=== PATIENT | female | born 1985 | race Hispanic/Latino ===

== ENCOUNTER 2017-12-13 14:05 | Emergency (ER) | payer OTHER ==
[2017-12-13 14:27] VITALS: BMI 28.8
[2017-12-13 14:30] VITALS: O2SAT 100
--- NOTE | 2017-12-13 14:51 | C.PDOC ---
History Of Present Illness 32 year old female presents to the ER with a complaint of frequency and pelvic pain when sitting and that worsens with walking; associated with some discomfort with urination. Denies vaginal bleeding or vaginal discharge. Time Seen by Provider: 12/13/17 14:44 Chief Complaint (Nursing): Female Genitourinary History Per: Patient History/Exam Limitations: no limitations Onset/Duration Of Symptoms: Days Current Symptoms Are (Timing): Still Present Associated Symptoms: Urinary Symptoms (Frequency), Other ((+) Pelvic pain. (-) Vaginal bleeding or discharge.). denies: Fever Alleviating Factors: None Recent travel outside of the [place]: No Abnormal Vaginal Bleeding: No Past Medical History Reviewed: Historical Data, Nursing Documentation, Vital Signs Vital Signs: Last Vital Signs Temp 97.8 F 12/13/17 14:28 Pulse 80 12/13/17 14:28 Resp 16 12/13/17 14:28 BP 112/76 12/13/17 14:28 Pulse Ox 100 12/13/17 17:52 - [facility] Procedures ARTIF RUPT MEMBRANES NEC (12/06/13) MONITORING NOS (12/06/13) INJECT/INFUSE NEC (03/25/13) MANUAL ASSIST DELIV NEC (12/06/13) Family History: States: Unknown Family Hx - Social History Hx Alcohol Use: No Hx Substance Use: No - Immunization History Hx Tetanus Toxoid Vaccination: No Hx Influenza Vaccination: No Hx Pneumococcal Vaccination: No Review Of Systems Constitutional: Negative for: Fever, Chills Gastrointestinal: Negative for: Abdominal Pain Genitourinary: Positive for: Frequency, Pelvic Pain. Negative for: Vaginal Discharge, Vaginal Bleeding Physical Exam - Physical Exam Appears: Non-toxic Skin: Normal Color, Warm, Dry Head: Atraumatic, Normacephalic Eye(s): bilateral: Normal Inspection Oral Mucosa: Moist Chest: Symmetrical, No Tenderness Cardiovascular: Rhythm Regular Respiratory: Normal Breath Sounds, No Rales, No Rhonchi, No Wheezing Gastrointestinal/Abdominal: Soft, Tenderness (Left suprapubic), No Guarding, No Rebound Pelvic: Normal External Exam, Normal Speculum Exam, No Vaginal Bleeding, No Vaginal Discharge, No Cervical Motion Tenderness, Adnexal Tenderness (left) Neurological/Psych: Oriented x3, Normal Speech, Normal Cognition ED Course And Treatment - Laboratory Results Result Diagrams: 12/13/17 15:32 12/13/17 15:32 O2 Sat by Pulse Oximetry: 100 (Room air) Pulse Ox Interpretation: Normal - CT Scan/US Pelvis US Other Rad Studies (CT/US): Read By Radiologist, Radiology Report Reviewed CT/US Interpretation: HISTORY: let pelvic pain. COMPARISON: None available. TECHNIQUE: Transabdominal and transvaginal. FINDINGS: UTERUS: Measures 7.9 x 4.3 x 6.0 cm. Normal in size and appearance. No fibroid or other mass lesion seen. ENDOMETRIUM: Measures 8 mm in diameter. Unremarkable. CERVIX: No cervical abnormality identified. RIGHT OVARY: Measures 2.4 x 2.9 x 2.6 cm. No solid mass. Normal flow. LEFT OVARY: Measures 3.5 x 2.3 x 2.7 cm. No solid mass. Normal flow. Minimally complicated cyst with internal septation, 2.0 x 1.3 x 1.8 cm. Likely physiologic. . FREE FLUID: No significant free fluid noted. OTHER FINDINGS: None. IMPRESSION: 2 cm septated left ovarian cyst. Otherwise unremarkable. Progress Note: Blood work, urinalysis, and pelvis US ordered. IV fluids administered. Disposition - Disposition Referrals: [facility] [Outside] Disposition: HOME/ ROUTINE Disposition Time: 18:13 Condition: STABLE Additional Instructions: Follow up with OBGYN within 1-2 days. Return to ED if feel worse. Prescriptions: Naproxen [Naprosyn] 1 tab PO BID PRN #25 tab PRN Reason: Pain Instructions: Ovarian Cyst (DC) Forms: Ratify (Thai), Ratify (Israeli) Print Language: DANISH - Clinical Impression Clinical Impression: Ovarian cyst - PA / OUT PATIENT THERAPIST / Resident Statement MD/DO has reviewed & agrees with the documentation as recorded. - Scribe Statement The provider has reviewed the documentation as recorded by the Scribe Luis Stephens All medical record entries made by the Antelmoibe were at my direction and personally dictated by me. I have reviewed the chart and agree that the record accurately reflects my personal performance of the history, physical exam, medical decision making, and the department course for this patient. I have also personally directed, reviewed, and agree with the discharge instructions and disposition.
[2017-12-13 14:52] LABS: HCG,QUALITATIVE URINE NEGATIVE (NEGATIVE)
[2017-12-13 15:04] LABS: SQUAMOUS EPITHIAL 2 /hpf (0-5); URINE BILIRUBIN NEGATIVE (NEGATIVE); URINE BLOOD NEGATIVE (NEGATIVE); URINE CLARITY Clear (Clear); URINE COLOR Yellow (YELLOW); URINE GLUCOSE (UA) NORMAL (Normal); URINE LEUKOCYTE ESTERASE NEG Leu/uL (Negative); URINE PROTEIN NEGATIVE (NEGATIVE); URINE UROBILINOGEN NORMAL mg/dL (0.2-1.0)
[2017-12-13] MEDS ORDERED: Sodium Chloride 0.9% 1,000 ML IV STA (15:15)
[2017-12-13 15:37] LABS: BASO # 0.1 K/uL (0.0-0.2); EOS # 0.1 K/uL (0.0-0.7); EOS % 1.9 % (0.0-4.0); HEMOGLOBIN 14.1 g/dL (11.0-16.0); LYMPH # 2.9 K/uL (1.0-4.3); LYMPH % 39.8 % (20.0-40.0); MEAN CELL VOLUME 83.5 fL (81.0-99.0); MEAN CORPUSCULAR HEMOGLOBIN 29.1 pg (27.0-31.0); MEAN CORPUSCULAR HGB CONC 34.9 g/dL (33.0-37.0); MEAN PLATELET VOLUME 9.4 fL (7.2-11.7); MONO # 0.3 K/uL (0.0-0.8); MONO % 4.8 % (0.0-10.0); NEUT # 3.8 K/uL (1.8-7.0); NEUT % 52.5 % (50.0-75.0); NRBC % 0.1 % (0.0-2.0); RBC 4.84 Mil/uL (3.80-5.20); RED CELL DISTRIBUTION WIDTH 12.7 % (11.5-14.5); WHITE BLOOD COUNT 7.3 K/uL (4.8-10.8)
[2017-12-13 16:09] LABS: ALB/GLOB RATIO 1.1 (1.0-2.1); ALBUMIN 4.2 g/dL (3.5-5.0); ALT/SGPT 25 U/L (9-52); AST/SGOT 32 U/L (14-36); BLOOD UREA NITROGEN 15 mg/dL (7-17); CALCIUM 9.2 mg/dl (8.6-10.4); GFR AFRICAN-AMERICAN > 60; GFR NON-AFRICAN AMERICAN > 60; LIPASE 226 U/L (23-300)
--- NOTE | 2017-12-13 17:28 | US ---
HISTORY: let pelvic pain COMPARISON: None available. TECHNIQUE: Transabdominal and transvaginal FINDINGS: UTERUS: Measures 7.9 x 4.3 x 6.0 cm. Normal in size and appearance. No fibroid or other mass lesion seen. ENDOMETRIUM: Measures 8 mm in diameter. Unremarkable. CERVIX: No cervical abnormality identified. RIGHT OVARY: Measures 2.4 x 2.9 x 2.6 cm. No solid mass. Normal flow. LEFT OVARY: Measures 3.5 x 2.3 x 2.7 cm. No solid mass. Normal flow. Minimally complicated cyst with internal septation, 2.0 x 1.3 x 1.8 cm. Likely physiologic. . FREE FLUID: No significant free fluid noted. OTHER FINDINGS: None. IMPRESSION: 2 cm septated left ovarian cyst. Otherwise unremarkable.
[2017-12-13 18:30] VITALS: BP 124/89; PULSE 81; RESP 18; TEMP 98.3
== END 2017-12-13 18:30 | disposition home or self-care (01) ==
LOC: C.ER 14:05
DX: N83.209 Unspecified ovarian cyst, unspecified side (principal)
CPT/HCPCS: 76830; 76856; 80053; 81001; 83690; 84703; 85025; 87086; 96360; 99285; J7040

== ENCOUNTER 2018-09-26 16:51 | Emergency (ER) | payer OTHER ==
[2018-09-26 16:51] VITALS: BMI 28.7
[2018-09-26 18:18] LABS: SQUAMOUS EPITHIAL 1 /hpf (0-5); URINE BILIRUBIN NEGATIVE (NEGATIVE); URINE BLOOD NEGATIVE (NEGATIVE); URINE CLARITY Clear (Clear); URINE COLOR Yellow (YELLOW); URINE GLUCOSE (UA) NORMAL (Normal); URINE LEUKOCYTE ESTERASE NEG Leu/uL (Negative); URINE PROTEIN NEGATIVE (NEGATIVE); URINE UROBILINOGEN NORMAL mg/dL (0.2-1.0)
[2018-09-26 18:19] LABS: HCG,QUALITATIVE URINE POSITIVE (NEGATIVE)
--- NOTE | 2018-09-26 20:07 | C.PDOC ---
History Of Present Illness 33 y/o female presents to the ED complaining of lower abdominal pain for 1 week. Denies any associated nausea, vomiting, diarrhea, vaginal bleeding or discharge. Patient also reports minimal dysuria. No other complaints. LMP was 08/20/18. Patient is wondering if she is . Time Seen by Provider: 09/26/18 19:26 Chief Complaint (Nursing): Abdominal Pain History Per: Patient History/Exam Limitations: no limitations Onset/Duration Of Symptoms: Days Current Symptoms Are (Timing): Still Present Past Medical History Reviewed: Historical Data, Nursing Documentation, Vital Signs Vital Signs: Last Vital Signs Temp 98.9 F 09/26/18 17:01 Pulse 90 09/26/18 17:01 Resp 20 09/26/18 17:01 BP 134/83 09/26/18 17:01 Pulse Ox 100 09/26/18 17:01 - Medical History PMH: No Chronic Diseases Surgical History: No Surg Hx - [facility] Procedures ARTIF RUPT MEMBRANES NEC (12/06/13) MONITORING NOS (12/06/13) INJECT/INFUSE NEC (03/25/13) MANUAL ASSIST DELIV NEC (12/06/13) Family History: States: Unknown Family Hx - Social History Hx Alcohol Use: No Hx Substance Use: No - Immunization History Hx Tetanus Toxoid Vaccination: No Hx Influenza Vaccination: No Hx Pneumococcal Vaccination: No Review Of Systems Constitutional: Negative for: Fever, Chills Cardiovascular: Negative for: Chest Pain Respiratory: Negative for: Shortness of Breath Gastrointestinal: Positive for: Abdominal Pain. Negative for: Nausea, Vomiting, Diarrhea Genitourinary: Positive for: Dysuria (mild). Negative for: Vaginal Discharge, Vaginal Bleeding Neurological: Negative for: Weakness, Dizziness Physical Exam - Physical Exam Appears: Well, Non-toxic, No Acute Distress Skin: Warm, Dry Head: Atraumatic, Normacephalic Eye(s): bilateral: Normal Inspection, PERRL, EOMI Oral Mucosa: Moist Neck: Normal ROM Chest: Symmetrical Cardiovascular: Rhythm Regular, No Murmur Respiratory: Normal Breath Sounds, No Rales, No Rhonchi, No Wheezing Gastrointestinal/Abdominal: Soft, Tenderness (Minimal lower abdominal tenderness), No Guarding, No Rebound Back: No CVA Tenderness, No Vertebral Tenderness Extremity: Bilateral: Atraumatic, Normal Color And Temperature, Normal ROM Pulses: Left Dorsalis Pedis: Normal, Right Dorsalis Pedis: Normal Neurological/Psych: Oriented x3, Normal Speech ED Course And Treatment O2 Sat by Pulse Oximetry: 100 (on RA) Pulse Ox Interpretation: Normal - CT Scan/US pelvic US Other Rad Studies (CT/US): Read By Radiologist, Radiology Report Reviewed CT/US Interpretation: Date of service: 09/26/2018. History. Abdominal pain + HCG. Comparison. None available. Technique. Pelvic transvaginal ultrasound. Findings. Uterus. Measures 9.90 x 4.61 x 5.81 cm. Normal in size and appearance. No fibroid or other mass lesion seen. Endometrium. Measures 1.09 mm in diameter. Unremarkable. Cervix. Measures 2.54. No cervical abnormality identified. Right ovary. Measures 2.79 x 1.21 x 2.31 cm. No solid mass. Normal flow. Left ovary. Measures 3.48 x 2.37 x 2.71 cm. No solid mass. Normal flow. Free fluid. No significant free fluid noted. Other Findings. None. Impression. Unremarkable pelvic ultrasound. No intrauterine seen. . Electronically signed on Sep 26, 2018 10:51:59 PM EST by: Napoleon Rosa M.D., SALLY Certified By ABR & CBC[employer]. Fellowship Trained MRI and CT Specialist. Medical Decision Making Medical Decision Making: Impression: Abdominal pain, r/o ectopic Plan: --Urinalysis --Urine preg --Transvaginal US Labs reviewed, + urine HCG. UA is clear. US done and results noted. Discussed with patient. 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 Patient advised to return for any new or worsening symptoms such as vaginal bleeding, worsening pain, dizziness/syncope, etc. She can take tylenol for pain, no motrin. Disposition - Disposition Disposition: HOME/ ROUTINE Disposition Time: 23:11 Condition: STABLE Additional Instructions: THOMAS MORAN, thank you for letting us take care of you today. Your provider was Jenny Elizalde MD and you were treated for ABD PAINS. The emergency medical care you received today was directed at your acute symptoms. If you were prescribed any medication, please fill it and take as directed. It may take several days for your symptoms to resolve. Return to the Emergency Department if your symptoms worsen, do not improve, or if you have any other problems. Please contact your doctor or call one of the physicians/clinics you have been referred to that are listed on the Patient Visit Information form that is included in your discharge packet. Bring any paperwork you were given at discharge with you along with any medications you are taking to your follow up visit. Our treatment cannot replace ongoing medical care by a primary care provider outside of the emergency department. Thank you for allowing the [facility] team to be part of your care today. If you had an X-Ray or CT scan: A Radiologist will review the ED reading if any change in treatment is needed we will contact you. If you had a blood, urine, or wound culture: It will take several days for the results, if any change in treatment is needed we will contact you. If you had an STI test: It will take 48 hours for the results. Please call after 1 week if you have not heard back. Instructions: Stomach Pain in Early Forms: [employer] (Sudanese) Print Language: WELSH - Clinical Impression Clinical Impression: Abdominal pain during - Scribe Statement The provider has reviewed the documentation as recorded by the Enoc Lott Provider Attestation: All medical record entries made by the Enoc were at my direction and personally dictated by me. I have reviewed the chart and agree that the record accurately reflects my personal performance of the history, physical exam, [facility] decision making, and the department course for this patient. I have also personally directed, reviewed, and agree with the discharge instructions and disposition.
[2018-09-26 23:28] VITALS: BP 131/86; PULSE 88; RESP 16; TEMP 98.8
[2018-09-27 00:57] VITALS: O2SAT 100
--- NOTE | 2018-09-27 12:12 | US ---
Date of service: 09/26/2018 HISTORY: abdominal pain, +hcg COMPARISON: Pelvic ultrasound performed 12/13/17 TECHNIQUE: Real-time transabdominal pelvic ultrasound was performed. In addition a transvaginal pelvic ultrasound was necessary to better depict pelvic anatomy. FINDINGS: UTERUS: Measures 9.9 x 4.6 x 5.8 cm. Anteverted. ENDOMETRIUM: Measures 1.1 cm in diameter. CERVIX: Cervix length measures approximately 2.5 cm. RIGHT OVARY: Measures 2.8 x 1.2 x 2.3 cm. Blood flow is demonstrated. LEFT OVARY: Measures 3.5 x 2.4 x 2.7 cm. Blood flow is demonstrated. FREE FLUID: No significant free fluid noted. OTHER FINDINGS: None. IMPRESSION: No evidence of intrauterine gestational sac. If indeed the patient is based on serum beta HCG values, the sonographic findings represent either: Very early IUP; embryonic demise; ectopic gestation. Follow-up with serial quantitative serum beta HCG measurements and post OBGYN follow-up as clinically indicated, since ectopic gestation cannot be excluded based only on sonographic findings. Preliminary impression was provided by [facility].
== END 2018-09-26 23:28 | disposition home or self-care (01) ==
LOC: C.ER 16:51
DX: O26.899 Other specified pregnancy related conditions, unspecified trimester (principal); Z3A.00 Weeks of gestation of pregnancy not specified; R10.30 Lower abdominal pain, unspecified